=== PATIENT | male | born 1990 | race Caucasian/White ===

== ENCOUNTER 2018-05-20 20:57 | Emergency (ER) | payer MEDICAID ==
[~2018-05-20] VITALS: Ht 185.4 cm; Wt 109.1 kg
[2018-05-20 22:38] VITALS: BP 158/102
== END 2018-05-20 23:11 | disposition home or self-care (01) ==
LOC: EMS 20:58
DX: L98.9 Disorder of the skin and subcutaneous tissue, unspecified (principal); I10 Essential (primary) hypertension
CPT/HCPCS: 99281

== ENCOUNTER 2019-03-05 15:58 | Emergency (ER) | payer MEDICAID ==
[~2019-03-05] VITALS: Ht 182.9 cm; Wt 130.0 kg
[2019-03-05] MEDS ORDERED: ACETAMINOPHEN 500 MG TABLET PO ONE (17:00)
[2019-03-05] MEDS ORDERED: LIDOCAINE 1%/EPI 1:200,000/PF 30 ML VIAL INJ ONE ×2 (17:00→17:30)
[2019-03-05] MEDS ORDERED: LIDOCAINE 1%/EPI 1:200,000/PF 10 ML VIAL INJ ONE ×2 (17:15→17:30)
[2019-03-05] MEDS ORDERED: BACITRACIN 0.9 GM PACKET OINTMENT TP ONE (18:15)
[2019-03-05] MEDS ORDERED: IBUPROFEN 800 MG TABLET PO ONE (18:15)
[2019-03-05] MEDS ORDERED: PERTUSS(ACELL),DIPH,TET VAC/PF 0.5 ML VIAL IM ONE (18:30)
[2019-03-05 18:35] VITALS: BP 168/98
== END 2019-03-05 18:49 | disposition home or self-care (01) ==
LOC: EMS 15:59
DX: S51.812A Laceration without foreign body of left forearm, initial encounter (principal); I10 Essential (primary) hypertension; W31.89XA Contact with other specified machinery, initial encounter; Y93.89 Activity, other specified; Y92.89 Other specified places as the place of occurrence of the external cause; Y99.8 Other external cause status
CPT/HCPCS: 12032; 73090; 90471; 90715; 99284; J3490

== ENCOUNTER 2019-03-15 12:29 | Emergency (ER) | payer MEDICAID ==
[~2019-03-15] VITALS: Ht 185.4 cm; Wt 130.0 kg
[2019-03-15 13:47] VITALS: BP 144/86
== END 2019-03-15 13:52 | disposition home or self-care (01) ==
LOC: EMS 12:31
DX: S51.812D Laceration without foreign body of left forearm, subsequent encounter (principal); I10 Essential (primary) hypertension; Z48.02 Encounter for removal of sutures; W31.1XXD Contact with metalworking machines, subsequent encounter

== ENCOUNTER 2020-12-12 10:42 | Emergency (ER) | payer MEDICAID ==
[~2020-12-12] VITALS: Ht 185.4 cm; Wt 131.8 kg
[2020-12-12] MEDS ORDERED: IBUPROFEN 800 MG TABLET PO ONE (13:15)
[2020-12-12] MEDS ORDERED: BACITRACIN 0.9 GM PACKET OINTMENT TP ONE (13:15)
[2020-12-12 14:45] VITALS: BP 133/86
== END 2020-12-12 15:35 | disposition home or self-care (01) ==
LOC: EMS 10:42
DX: S60.221A Contusion of right hand, initial encounter (principal); I10 Essential (primary) hypertension; W19.XXXA Unspecified fall, initial encounter; Y93.89 Activity, other specified; Y92.89 Other specified places as the place of occurrence of the external cause; Y99.8 Other external cause status
CPT/HCPCS: 99283; 99285

== ENCOUNTER 2023-12-13 14:33 | Emergency (ER) | payer MEDICAID ==
[~2023-12-13] VITALS: Ht 182.9 cm; Wt 118.2 kg
[2023-12-13 14:35] VITALS: BP 147/80; PULSE 76; RESP 18; TEMP 98
[2023-12-13] MEDS ORDERED: ACET-2080 PO (16:49)
[2023-12-13] MEDS ORDERED: IBUP-1554 PO (16:49)
[2023-12-13] MEDS: IBUPROFEN 600 MG TABLET PO ONE (17:05)
== END 2023-12-13 17:10 | disposition home or self-care (01) ==
LOC: EMS 14:47
DX: S86.912A Strain of unspecified muscle(s) and tendon(s) at lower leg level, left leg, initial encounter (principal); I10 Essential (primary) hypertension; X50.3XXA Overexertion from repetitive movements, initial encounter; Y93.89 Activity, other specified; Y92.89 Other specified places as the place of occurrence of the external cause; Y99.8 Other external cause status
CPT/HCPCS: 29505; 99283